=== PATIENT | female | born 1950 | race Caucasian/White ===

== ENCOUNTER 2021-09-08 18:49 | Emergency (ER) | payer OTHER, SELFPAY ==
--- NOTE | ~2021-09-08 | CT_ITS ---
EXAMINATION: CT HEAD WITHOUT CONTRAST CT CERVICAL SPINE WITHOUT CONTRAST CLINICAL INFORMATION: Fall, head injury. COMPARISON: None. TECHNIQUE: Contiguous axial imaging was performed from the skull base to vertex without intravenous administration of contrast. Contiguous axial imaging was performed from the upper chest through the skull base without intravenous administration of contrast. Coronal and sagittal reformats were obtained at the acquisition workstation. This CT examination was performed using dose optimization techniques as appropriate, variously including the following: *Automated exposure control *Adjustment of mA and/or kV according to patient size (this includes techniques or standardized protocols for targeted exams where dose is matched to indication/reason for exam; i.e. extremities or head) *Use of iterative reconstruction technique DLP: 302 mGy-cm FINDINGS: Head: There is no evidence of acute intracranial hemorrhage or edematous territorial infarction. Scattered hypoattenuation in the periventricular and deep white matter are consistent with moderate microangiopathy. Lemus-white matter differentiation is preserved. Proportional prominence of the ventricles and sulcal spaces. No evidence for obstructive hydrocephalus. No abnormal mass effect or midline shift. No extra-axial fluid collections. Left frontal scalp contusion/hematoma. Small right mastoid effusion. Mucosal thickening of the paranasal sinuses. Cervical Spine: The atlantooccipital and atlantoaxial articulations remain well aligned. Straightening of the normal cervical lordosis. Otherwise, there is anatomic alignment of the vertebral bodies and posterior elements. No evidence of acute fracture or subluxation. Moderate to severe cervical spondylosis with disc space narrowing, osteophytes and bilateral uncovertebral hypertrophy. Near fused facets on the left side at C2-C3. There is no prevertebral soft tissue swelling. The thyroid gland is atrophic versus surgically absent. The remaining cervical soft tissues are normal in appearance. The lung apices demonstrate nonspecific bandlike opacities, possibly scarring or atelectasis. CT/CT cervical spine wo con IMPRESSION: 1. Left frontal scalp contusion/hematoma without acute intracranial abnormalities. 2. No acute cervical spinal fracture or malalignment. 3. Severe cervical spondylosis.
--- NOTE | ~2021-09-08 | XR_ITS ---
EXAMINATION: XR HAND, LEFT CLINICAL INFORMATION: Pain after fall COMPARISON: None TECHNIQUE: PA, lateral, and oblique views of the left hand. FINDINGS: Diffuse osteopenia. Visualized portion of the distal radius and ulna demonstrate no fracture. Carpal rows are maintained. No carpal, metacarpal or phalangeal fracture. Moderate degenerative changes of the second, third and fifth DIP joints with mild diffuse degenerative changes of other IP joints. No focal soft tissue Identified. XR/XR hand LT 2V IMPRESSION: Degenerative changes of the hand. No fracture.
[2021-09-08 20:59] VITALS: BP 136/106; PULSE 74; RESP 16; TEMP 36.6; O2SAT 98; BMI 29.7
--- NOTE | 2021-09-08 21:24 | ED.FALL ---
HPI - Fall General Chief Complaint: Fall Stated Complaint: fall, head injury Time Seen by Provider: 09/08/21 21:07 Source: patient Mode of arrival: ambulatory Limitations: no limitations History of Present Illness HPI Narrative: 70-year-old female previously healthy here after a fall. Patient tells me she works as a [employer] member and tripped in a pothole today striking the left side of her head and her left 5th digit. Patient denies any loss of consciousness. She denies any anticoagulation use. She denies any headache, dizziness, nausea, vomiting, photophobia. Patient tells me she caught herself with her left hand and she has had pain in her left 5th digit. No numbness, tingling, difficulty moving the digit, warmth or redness. Related Data Allergies Allergy/AdvReac Type Severity Reaction Status Date / Time No Known Allergies Allergy Verified 09/08/21 21:12 Review of Systems Review of Systems: Yes all other systems are reviewed and are negative Constitutional: Constitutional: Reports no additional constitutional complaints, Denies body ache(s), Denies chills, Denies fever(s), Denies headache(s) and Denies weakness Eyes: Eyes: Reports no additional eye complaints and Denies change in vision ENT: Reports system reviewed and no additional complaints, except as documented, Denies dizziness, Denies headache(s), Denies nasal congestion, Denies nasal discharge and Reports neck pain Cardiovascular: Cardiovascular: Reports no additional cardiovascular complaints, Denies chest pain, Denies leg edema and Denies dyspnea Respiratory: Respiratory: Reports no additional respiratory complaints, Denies cough and Denies dyspnea Gastrointestinal: Gastrointestinal: Reports no additional gastrointestinal complaints, Denies abdominal pain, Denies diarrhea, Denies nausea and Denies vomiting Genitourinary: Genitourinary: Reports no additional female genitourinary complaints and Denies urinary incontinence Musculoskeletal: Musculoskeletal: Reports no additional musculoskeletal complaints, Denies back pain, Reports arthralgias, Denies joint swelling, Reports limited range of motion, Reports neck pain, Denies numbness and Denies tingling Integumentary/Breasts: Skin/Breast: Reports system reviewed and no additional complaints, except as docu and Denies rash Neurologic: Reports system reviewed and no additional complaints, except as documented, Denies Abnormal speech present, Denies dizziness, Denies headache(s), Denies numbness, Denies tingling and Denies weakness [facility] Past Medical History Attestation statement: The following information was validated with the patient. Source: old records reviewed and nursing notes reviewed Social History Social History Advance Directives: No Physical Exam Vital Signs: Vital Signs: Last Vital Signs Temp 97.9 F 09/08/21 20:59 Pulse 74 09/08/21 20:59 Resp 16 09/08/21 20:59 BP 136/106 H 09/08/21 20:59 Pulse Ox 98 09/08/21 20:59 BMI result Body Mass Index 29.7 Const: General: cooperative, healthy appearing, comfortable and no acute distress Orientation/consciousness: patient oriented x3 Limitations: no limitations HENMT: Other: No hemotympanum Head: Yes normal to inspection, No Buchanan's sign and No raccoon eyes Head images: 1. Abrasion with ecchymosis and some bony tenderness over the periorbital area. Ears: hearing grossly normal bilaterally and TM's normal bilaterally General nose exam: Normal external nose present Face and sinus: Yes normal facial exam Mouth: Normal oral and palatal mucosa present Throat: Yes posterior oropharynx normal, Yes tonsils normal and Yes uvula midline Eyes: General: appearance normal, both eyes and all related structures Visual Alvarenga: normal visual alvarenga by confrontation Alignment and Position: alignment normal Eyelids: Yes eyelids normal Conjunctivae: conjunctivae normal Sclerae: sclerae normal Corneas: corneas normal Pupils: Equal, round and reactive pupils present EOM: EOMs intact bilaterally Direct Ophthalmoscopy: normal light reflex and no photophobia Neck: Other: Lower cervical tenderness with no step-offs or deformities. Full range of motion Neck: Yes normal visual inspection Chest: Chest palpation & inspection: normal inspection of the chest Resp: Effort & Inspection: normal respiratory effort Auscultation: clear to auscultation bilaterally Cardio: Rate: regular rate Rhythm: regular rhythm Peripheral pulses: Peripheral pulses 2+ throughout GI: Inspection: Yes normal to inspection Palpation (GI): Soft to palpation and nontender Auscultation: normal bowel sounds Back/Spine/Pelvis: Thoracic/Lumbar Spine: thoracic and lumbar spine normal to inspection Skin: General skin exam: no rashes or lesions noted Neuro: General: patient oriented x3, no focal motor deficits and normal sensation to monofilament Cranial nerves: Yes CN's II-XII intact bilaterally, Yes Equal, round and reactive pupils present, Yes Bilaterally intact EOM present, Yes Nystagmus not present, Yes Normal facial strength present and Yes Midline tongue present Cognition (Neuro): normal cognition Speech: No Abnormal speech present Gait exam (Neuro): Normal gait present Motor exam (neuro): 5/5 motor strength present throughout Sensory Exam: Normal double simultaneous stimulation for sensation Extrem: Other: Over the PIP of the volar aspect of the left 5th digit there is ecchymosis with swelling and tenderness. Full range of motion of the affected joint Slight ecchymosis over the left thenar with no tenderness General: Yes normal to inspection Course Course Course Narrative: 70-year-old female here after fall with head strike this afternoon. No loss of consciousness. No anticoagulation use. Normal neurological exam. The patient does have some mild cervical tenderness with no step-offs or deformities. No upper extremity sensation change or weakness. Will check CT head and neck due to age Additionally the patient has of ecchymosis and tenderness with swelling over the left 5th digit. Full range of motion. Will check x-rays Last tetanus within 5 years 2229-x-ray show no bony abnormality. CT head and neck are negative for any bony abnormality, fracture or intracranial hemorrhage. Patient referred to follow-up with were connection as this was a work related injury. Reviewed worrisome signs and symptoms when to return to the emergency department. Comfortable discharge home. MDM - Fall Medical Records Attestation: I reviewed the patient's medical records. Lab Data Attestation: I reviewed the patient's lab results. Imaging Data hand xray: Attestation: I personally reviewed and interpreted this imaging study as follows: Radiologist's impression: FINDINGS: Diffuse osteopenia. Visualized portion of the distal radius and ulna demonstrate no fracture. Carpal rows are maintained. No carpal, metacarpal or phalangeal fracture. Moderate degenerative changes of the second, third and fifth DIP joints with mild diffuse degenerative changes of other IP joints. No focal soft tissue Identified.? XR/XR hand LT 2V IMPRESSION: Degenerative changes of the hand. No fracture. ct head/neck: Attestation: I personally reviewed and interpreted this imaging study as follows: Radiologist's impression: FINDINGS: Head: There is no evidence of acute intracranial hemorrhage or edematous territorial infarction. Scattered hypoattenuation in the periventricular and deep white matter are consistent with moderate microangiopathy. Lemus-white matter differentiation is preserved. Proportional prominence of the ventricles and sulcal spaces. No evidence for obstructive hydrocephalus. No abnormal mass effect or midline shift. No extra-axial fluid collections. Left frontal scalp contusion/hematoma. Small right mastoid effusion. Mucosal thickening of the paranasal sinuses. Cervical Spine: The atlantooccipital and atlantoaxial articulations remain well aligned. Straightening of the normal cervical lordosis. Otherwise, there is anatomic alignment of the vertebral bodies and posterior elements. No evidence of acute fracture or subluxation. Moderate to severe cervical spondylosis with disc space narrowing, osteophytes and bilateral uncovertebral hypertrophy. Near fused facets on the left side at C2-C3. There is no prevertebral soft tissue swelling. The thyroid gland is atrophic versus surgically absent. The remaining cervical soft tissues are normal in appearance. The lung apices demonstrate nonspecific bandlike opacities, possibly scarring or atelectasis. CT/CT head/brain wo con IMPRESSION: 1.? Left frontal scalp contusion/hematoma without acute intracranial abnormalities. 2.? No acute cervical spinal fracture or malalignment. 3.? Severe cervical spondylosis. ? Discharge Plan Discharge Clinical Impression: Contusion of finger of left hand, Abrasion of face, Cervical strain, Head injury Patient Disposition: Home, Self-Care Instructions: Cervical Strain (DC), Head Injury (ED), Contusion in Adults (ED), Abrasion (ED) Additional Instructions: Your x-rays and CT scans look normal Ice to the affected area Motrin or Tylenol for pain as needed Follow-up with work connection Stand Alone Forms: Work/School Release Interventions: ED Discharge Assessment Last Done: 09/08/21 22:33
== END 2021-09-08 22:35 | disposition home or self-care (01) ==
PROVIDERS: Emergency Provider Emergency Medicine
DX: S16.1XXA Strain of muscle, fascia and tendon at neck level, initial encounter (principal); S09.90XA Unspecified injury of head, initial encounter; S60.052A Contusion of left little finger without damage to nail, initial encounter; S00.81XA Abrasion of other part of head, initial encounter; W17.2XXA Fall into hole, initial encounter; Y93.89 Activity, other specified; Y92.414 Local residential or business street as the place of occurrence of the external cause; Y99.0 Civilian activity done for income or pay
CPT/HCPCS: 70450; 72125; 73120; 99283; 99284